=== PATIENT | female | born 1965 | race Caucasian/White ===

== ENCOUNTER → 2016-07-08 | Outpatient (CLI) | payer MEDICARE, MEDICAID ==
[~2016-07-08] MED LIST: BENADRYL25 MG ORAL; LORAZEPAM1 MG ORAL
--- NOTE | 2016-07-08 14:04 | GI Initial Consult Note ---
History of Present Illness General Date patient seen: Jul 08, 2016 Time patient seen: 13:00 Referring physician: LETY SCHULZ Reason for Consultation: COLONOSCOPY SCREENING Present Illness HPI Pleasant 51 year old female referred to [facility] by Dr. Schulz for routine colonoscopy screening. In addition, pt presents today c/o of acid reflux relieved by antacids and occasional rectal bleeding from hx of hemorrhoids with relief from Preparation H. No history of any endoscopic procedures. Allergies: Coded Allergies: Cultivated Oat Pollen (Unverified Allergy, Severe, 07/08/16) Dog Dander (Unverified Allergy, Severe, 07/08/16) Soy Sauce (Unverified Allergy, Severe, 07/08/16) Patient History History Provided By: Patient PMH Narrative Asthma Memory loss Depression Hemorrhoids PSHx Cosmetic L Tib-fib fx 1994 degenerative disc Family History Narrative N/A Social History: Reports: alcohol use - 2x per week, drug use - MJ regular user , other - coffee, smoking - social Review of Systems All Other Systems: negative except mentioned in HPI Physical Exam T 97.7 BP 109/55 P 76 99RA HT 5'7 WT 182.7 lbs Denies excessive wt loss Sp02 EP Interpretation: reviewed General Appearance: well appearing, no apparent distress, alert Head: normocephalic EENT: normal ENT inspection Neck: full range of motion, supple Respiratory: normal breath sounds, no respiratory distress Cardiovascular: normal rate Gastrointestinal: normal inspection, non tender, soft, normal bowel sounds Rectal: deferred Musculoskeletal: normal inspection, back normal Neurologic: normal inspection, alert, oriented x3, responsive Psychiatric: normal inspection, judgement/insight normal, memory normal Skin: normal inspection, normal color, no rash, warm/dry Lymphatic: normal inspection, no adenopathy GI: Plan Problems: (1) GERD (gastroesophageal reflux disease) (2) Bleeding hemorrhoid (3) Colonoscopy planned Plan EGD/colonoscopy scheduled 07/21/16 - [facility] & [employer] prep instructions given and acknowledged. cont antacids prn cont prep H prn Seen with Dr. Rodriguez. Thank you for referring this kind patient. Christa Schultz N.P. Jul 08, 2016 14:04
[2016-07-08 16:48] VITALS: BP 109/55
== END | disposition home or self-care (01) ==
LOC: PAN 12:58
DX: K21.9 Gastro-esophageal reflux disease without esophagitis (principal); K64.9 Unspecified hemorrhoids; F12.90 Cannabis use, unspecified, uncomplicated; Z91.048 Other nonmedicinal substance allergy status
CPT/HCPCS: 99201

== ENCOUNTER → 2016-07-21 | Day surgery (SDC) | payer MEDICARE, MEDICAID ==
[2016-07-21] VITALS (8 sets, daily range): BP systolic 103–138; BP diastolic 57–78
[~2016-07-21] VITALS: Ht 165.1 cm; Wt 78.9 kg
[~2016-07-21] MED LIST changes: +Hydromorphone 0.5mg/0.5ml inj IVP PRN; +Ketorolac 30mg Inj IV PRN; +Lidocaine 1% MPF 10mg/ml 5ml ONE; +Norco 5mg/325mg tab ORAL PRN; +Propofol 10mg/ml 20ml IV ONE; +fentaNYL 100 mcg/2 mL IV PRN
--- NOTE | 2016-07-21 11:53 | Pre-Procedure Note/Attestation ---
Pre-Procedure Note/Attestation Complete Prior to Procedure Planned Procedure: not applicable Procedure Narrative: egd/colon Indications for Procedure Pre-Operative Diagnosis: GERD, screening colon Attestation I attest that I discussed the nature of the procedure; its benefits; risks and complications; and alternatives (and the risks and benefits of such alternatives ), prior to the procedure, with the patient (or the patient's legal brewery representative). I attest that, if there was a reasonable possibility of needing a blood transfusion, the patient (or the patient's legal brewery representative) was given the [facility] standardized written summary, pursuant to the Aravind Ola Blood Safety Act ([place] Health and Safety Code # 1645, as amended). I attest that I re-evaluated the patient just prior to the surgery and that there has been no change in the patient's H&P, except as documented below: PRAVEEN CARREON Jul 21, 2016 11:53
--- NOTE | 2016-07-21 11:54 | Short Stay Surgery H&P ---
History of Present Illness History of Present Illness Chief Complaint screening colon, GERD HPI Cynthia Marroquin is a 51 year old female who was admitted on for Gerd/Colon Screening Patient History Allergies: Coded Allergies: Cultivated Oat Pollen (Unverified Allergy, Severe, 07/08/16) Dog Dander (Unverified Allergy, Severe, 07/08/16) Soy Sauce (Unverified Allergy, Severe, 07/08/16) PAST MEDICAL HISTORY: (1) Depression (2) Asthma (3) GERD (gastroesophageal reflux disease) (4) Bleeding hemorrhoid Past Surgeries: Social History: Medication History Scheduled Lorazepam* (Lorazepam*), 1 MG ORAL DAILY, (Reported) Scheduled PRN Diphenhydramine Hcl* (Benadryl*), 25 MG ORAL Q6H PRN for Itching, (Reported) Review of Systems Cardiovascular: Reports: no symptoms Respiratory: Reports: no symptoms Genitourinary: Reports: no symptoms Neurologic: Reports: no symptoms Endocrine: Reports: no symptoms Hematologic: Reports: no symptoms Physical Exam Vital Signs Last Vital Signs Date Time Temp Pulse Resp B/P Pulse Ox O2 Delivery O2 Flow Rate FiO2 07/21/16 11:14 98.1 72 20 133/65 97 Room Air Skin: normal HENT: normal Heart: normal Lungs: normal Abdomen: normal Extremities: normal Plan Plan of Care egd/colon Final Diagnosis: Attestation Are the patient's medical conditions optimized for surgery? Attestation Response: yes PRAVEEN CARREON Jul 21, 2016 11:54
--- NOTE | 2016-07-21 12:28 | Endoscopy Procedure Note ---
Endoscopy Procedure Note Indication for Procedure: gerd,screening colon Procedures Performed: EGD, colonoscopy Operative Findings/Diagnosis: gastritis, hemorrhoids,one colon polyp Specimen: yes Pt Tolerated Procedure Well: Yes Estimated Blood Loss: none Anesthesiologist: jonathon Anesthesia: MAC Implant(s) used?: No 50 yrs or older w/o bx or poly: No 10yrs. F/U not recommended: Yes If not recommended, why?: Above average risk 10 yrs. F/U needed: Yes 18 years or older w/prev. colo: No PRAVEEN CARREON Jul 21, 2016 12:28
--- NOTE | 2016-07-21 12:44 | Immediate Post-Op Evaluation ---
Immediate Post-Op Evalulation Immediate Post-Op Evalulation Procedure: EGD/Colon Date of Evaluation: Jul 21, 2016 Time of Evaluation: 13:00 IV Fluids: 500 Blood Products: 0 Estimated Blood Loss: 0 Urinary Output: 0 Blood Pressure Systolic: 140 Blood Pressure Diastolic: 80 Pulse Rate: 80 Respiratory Rate: 20 O2 Sat by Pulse Oximetry: 99 Temperature (Fahrenheit): 97.6 Pain Score (1-10): 1 Nausea: No Vomiting: No Complications na Patient Status: awake Hydration Status: adequate Given Within 1 Hr of Incision: IMAN Zhu M.D. Jul 21, 2016 12:44
--- NOTE | 2016-07-21 12:45 | Anethesia Preoperative Eval ---
Anesthesia Pre-op PMH/ROS General Date of Evaluation: Jul 21, 2016 Time of Evaluation: 12:44 Anesthesiologist: Lacie ASA Score: ASA 2 Mallampati Score Class I : Soft palate, uvula, fauces, pillars visible Class II: Soft palate, uvula, fauces visible Class III: Soft palate, base of uvula visible Class IV: Only hard plate visible Mallampati Classification: Class II Surgeon: Jennifer Diagnosis: Gerd/AB Pain Surgical Procedure: EGD/Colon Anesthesia History: none Family History: no anesthesia problems Allergies: Coded Allergies: Cultivated Oat Pollen (Unverified Allergy, Severe, 07/08/16) Dog Dander (Unverified Allergy, Severe, 07/08/16) Soy Sauce (Unverified Allergy, Severe, 07/08/16) Medications: see eMAR Past Medical History Cardiovascular: Reports: HTN Pulmonary: Reports: asthma Gastrointestinal/Genitourinary: Reports: GERD Neurologic/Psychiatric: Denies: CVA, TIA, dementia, depression/anxiety, other Endocrine: Denies: DM, hypothyroidism, other, steroids HEENT: Denies: QAWALANGIN (L), QAWALANGIN (R), cataract (L), cataract (R), glaucoma, other Hematology/Immune: Denies: DVT, anemia, bleeding disorder, other Musculoskeletal/Integumentary: Denies: DDD, DJD, OA, RA, edema, other Other: obesity Anesthesia Pre-op Phys. Exam Physician Exam Last Vital Signs Date Time Temp Pulse Resp B/P Pulse Ox O2 Delivery O2 Flow Rate FiO2 07/21/16 11:14 98.1 72 20 133/65 97 Room Air Constitutional: NAD Neurologic: CN 2-12 intact Cardiovascular: RRR Respiratory: CTA Airway Exam Mallampati Score: Class II IMAN CROWELL M.D. Jul 21, 2016 12:45
--- NOTE | 2016-07-21 12:46 | 48 Hour Post Anesthesia Eval ---
Post Anesthesia Evaluation Procedure: EGD/Colon Date of Evaluation: Jul 21, 2016 Time of Evaluation: 14:00 Blood Pressure Systolic: 150 0: 80 Pulse Rate: 80 Respiratory Rate: 20 Temperature (Fahrenheit): 97.6 O2 Sat by Pulse Oximetry: 99 Airway: patent Nausea: No Vomiting: No Pain Intensity: 1 Hydration Status: adequate Cardiopulmonary Status: stable Mental Status/LOC: patient returned to baseline Follow-up Care/Observations: na Post-Anesthesia Complications: na Follow-up care needed: N/A IMAN CROWELL M.D. Jul 21, 2016 12:46
--- NOTE | 2016-07-21 20:28 | Procedure Note ---
DATE OF PROCEDURE: 07/21/2016 SURGEON: Edis Rodriguez M.D. PROCEDURE: Upper endoscopy with biopsy and colonoscopy with biopsy. ANESTHESIOLOGIST: Mitch Medellin M.D. INSTRUMENT: Olympus adult flexible upper endoscope and colonoscope. INDICATION: Screening colonoscopy and chronic gastroesophageal reflux disease. REASON FOR PROCEDURE: The procedure, risks, benefits, and possible consequences, including hemorrhage, aspiration, perforation and infection, and alternative treatments, were explained to the patient/legal guardian by Dr. Edis Rodriguez and the patient/legal guardian understood and accepted these risks. DESCRIPTION OF PROCEDURE: After informed consent was obtained and the patient was adequately sedated, Olympus upper endoscope was advanced from mouth into the second portion of the duodenum and retroflexion was performed in the stomach. The patient had evidence of diffuse gastritis. Random biopsy from body of the stomach was obtained to rule out H. pylori infection. The patient had multiple erosion-looking lesion in the antrum and few linear erythemas. All of these lesions were biopsied. At this time, the upper endoscope was retrieved and the patient was turned over for colonoscopy. First, a rectal exam was performed, which was positive for large external and internal hemorrhoid. Then, the scope was advanced from rectum into the cecum, documented by appendiceal orifice, ileocecal valve, and right upper quadrant palpation. Quality of prep was very good. The patient had one small polyp in the descending colon removed with the cold biopsy forceps technique. The rest of the examination grossly looked within normal limit. Retroflexion of rectum showed evidence of large internal hemorrhoids. SUMMARY OF FINDINGS: 1. Antral erosions status post biopsy. 2. Gastritis, status post biopsy. 3. One colonic polyp removed, see above for details. 4. Large internal and external hemorrhoids. RECOMMENDATIONS: 1. Treat for hemorrhoid if it become symptomatic. The patient might benefit from banding given the size of this hemorrhoid. 2. Followup biopsy results and treat accordingly. 3. The patient will benefit from repeat colonoscopy in five years. Edis Rodriguez M.D. DR: QUINCY JOB#: [id number] CC:
--- NOTE | 2016-08-10 14:27 | Cardiology Report ---
APPROVED REPORT EKG Measurement Heart [id number] DE 150P45 [id number] Normal sinus rhythm Normal ECG
== END | disposition home or self-care (01) ==
LOC: GAS 10:12
DX: Z12.11 Encounter for screening for malignant neoplasm of colon (principal); D12.4 Benign neoplasm of descending colon; K64.8 Other hemorrhoids; K64.4 Residual hemorrhoidal skin tags; K21.9 Gastro-esophageal reflux disease without esophagitis; K29.50 Unspecified chronic gastritis without bleeding; B96.81 Helicobacter pylori [H. pylori] as the cause of diseases classified elsewhere; I10 Essential (primary) hypertension; F32.9 Major depressive disorder, single episode, unspecified; J45.909 Unspecified asthma, uncomplicated; E66.9 Obesity, unspecified
CPT/HCPCS: 43239; 45380; 93005; J2704; 94003; 94150

== ENCOUNTER → 2016-08-04 | Outpatient (CLI) | payer MEDICARE, MEDICAID ==
[~2016-08-04] MED LIST changes: -Hydromorphone 0.5mg/0.5ml inj IVP PRN; -Ketorolac 30mg Inj IV PRN; -Lidocaine 1% MPF 10mg/ml 5ml ONE; -Norco 5mg/325mg tab ORAL PRN; -Propofol 10mg/ml 20ml IV ONE; -fentaNYL 100 mcg/2 mL IV PRN
[2016-08-04 13:40] VITALS: BP 110/60
--- NOTE | 2016-08-04 14:04 | GI Progress Note ---
Assessment/Plan Problems: (1) Rectal bleed ICD Codes: K62.5 - Hemorrhage of anus and rectum SNOMED: 19097518 (2) Encounter for diagnostic endoscopy ICD Codes: Z01.818 - Encounter for other preprocedural examination SNOMED: 391944768, 653627683 (3) Helicobacter pylori (H. pylori) ICD Codes: A04.8 - Other specified bacterial intestinal infections SNOMED: 3992645 (4) Bleeding hemorrhoid ICD Codes: K64.9 - Unspecified hemorrhoids SNOMED: 52279790 (5) GERD (gastroesophageal reflux disease) ICD Codes: K21.9 - Gastro-esophageal reflux disease without esophagitis SNOMED: 037229755 Status: stable Status Narrative Seen with Dr. Rodriguez. Assessment/Plan Flex sig with banding scheduled 08/18/16 - NPO @ [place] day prior procedure acknowledged by patient. H Pylori positive >> amox + biaxin + omeprazole RTC x 3 months to repeat Breath Test. repeat colon x 5 years Subjective Gastrointestinal/Abdominal: Reports: rectal bleeding Objective Last 24 Hour Vital Signs Date Time Temp Pulse Resp B/P Pulse Ox O2 Delivery O2 Flow Rate FiO2 08/04/16 13:40 97.4 60 16 110/60 General Appearance: no apparent distress, alert Cardiovascular: normal rate Respiratory/Chest: normal breath sounds, no respiratory distress Abdominal Exam: normal bowel sounds, non tender, soft Objective Endoscopy Procedure Note Indication for Procedure: gerd,screening colon Procedures Performed: EGD, colonoscopy Operative Findings/Diagnosis: gastritis, hemorrhoids,one colon polyp PRAVEEN RODRIGUEZ - Jul 21, 2016 12:28 Christa Schultz N.P. Aug 04, 2016 14:04
== END | disposition home or self-care (01) ==
LOC: PAN 13:15
DX: Z01.818 Encounter for other preprocedural examination (principal); K62.5 Hemorrhage of anus and rectum; A04.8 Other specified bacterial intestinal infections; K64.9 Unspecified hemorrhoids; K21.9 Gastro-esophageal reflux disease without esophagitis
CPT/HCPCS: 99211

== ENCOUNTER 2016-11-17 13:52 | Outpatient (CLI) | payer MEDICARE, MEDICAID ==
--- NOTE | 2016-11-17 15:56 | GI Progress Note ---
Assessment/Plan Problems: (1) Helicobacter pylori (H. pylori) ICD Codes: A04.8 - Other specified bacterial intestinal infections SNOMED: 5770372 (2) GERD (gastroesophageal reflux disease) ICD Codes: K21.9 - Gastro-esophageal reflux disease without esophagitis SNOMED: 803772872 (3) Asthma ICD Codes: J45.909 - Unspecified asthma, uncomplicated SNOMED: 416580650 (4) Bleeding hemorrhoid ICD Codes: K64.9 - Unspecified hemorrhoids SNOMED: 46589663 Status: stable Status Narrative Discussed with Dr. Rodriguez. Assessment/Plan s/p Flex sig with banding H Pylori positive >> breath test repeated today RTC prn repeat colon x 5 years Subjective Gastrointestinal/Abdominal: Reports: no symptoms Objective T 98.4 BP 75 P 66 97 RA General Appearance: no apparent distress, alert Cardiovascular: normal rate Respiratory/Chest: normal breath sounds, no respiratory distress Abdominal Exam: normal bowel sounds, non tender, soft Extremities: normal range of motion Christa Schultz N.P. Nov 17, 2016 15:56
== END 2016-11-17 15:52 | disposition home or self-care (01) ==
LOC: PAN 13:52
DX: A04.8 Other specified bacterial intestinal infections (principal); K21.9 Gastro-esophageal reflux disease without esophagitis; J45.909 Unspecified asthma, uncomplicated; K64.9 Unspecified hemorrhoids
CPT/HCPCS: 83013; 83014